=== PATIENT | male | born 1945 | race Caucasian/White ===

== ENCOUNTER 2024-07-07 15:44 | Emergency (ER) | payer MEDICARE, OTHER, SELFPAY ==
--- NOTE | 2024-07-07 20:33 | ED.GENMED ---
History of Present Illness
General
Chief Complaint: Fever
Source: patient and family
Exam Limitations: dementia
Time Seen by Provider: 07/07/24 20:15
Nursing documentation reviewed up to this point in time: agreed with
History of Present Illness
History of Present Illness:
79 y/o M
h/o dementia
afib on xarelto
here with family
fall todday and struck R face on curb, no loc
says last night pt had some pain in his R hip and some chills and fever 102
she took him to the primary office and he had Urine and ws told he probably had UTI, they were sending culture
prescribed cipro which he hasnt' started yet
the fever broke
he had a fall comin gout of the pharmacy
pt's was there and saw him fall, which isn't uncommon for him
she says he is at his baseline mental status
he has no pain
the R hip pain is resolved
he has no h/o kidney stone
no vomiting, confusion
Past History
Past History
ED Past Medical History: HTN, Hypercholesterolemia, Psychiatric and Other (dementia)
Social History
Tobacco: Non-smoker
Review of Systems
Review of Systems
Allergies reviewed?: Yes
Unable to obtain full review of systems at this time due to: dementia
All Other Systems: Not applicable
Phy Exam
Physical Exam
Physical Exam:
GENERAL: Alert , in no apparent distress, patient has a parkinsonian type stare and very slow movements but this is typical for him
HEAD: Right-sided temporal ecchymosis, no significant tenderness just lateral to the orbit on the right side
EYE: pupils equal and reactive, no nystagmus, no photophobia
NECK: Supple,full rom, nontender
ENT: o/p clr, mmm.
CARDIAC: Regular rate and rhythm . no edema
LUNGS: Clear breath sounds bilaterally, no acute respiratory distress, no wheezes/rales/rhonchi
ABDOMEN: Soft, without focal tenderness, no r/g, no cvat
NEUROLOGICAL: Alert and orientedx 4, cn intact, no facial asymmetry, 5/5 strength in UE/LE, sensation intact, , ambulates with assistance
SKIN: Warm and dry, skin intact.
MUSCULOSKELETAL: No edema, well perfused.
PSYCH: N Slow speech, dementia, baseline for the patient
Course
Orders/Labs/Results
Orders:
Orders
07/07/24 16:20
CT Head W/o Iv Contrast Urgent
Comment:
Reason For Exam: fall, head injury
Vital Signs
Temp: 36.4 C
Pulse: 92
Resp Rate: 16
Blood pressure: 152/72
Initial and Last Documented VS:
Initial Vital Signs
Temp Pulse Resp BP Pulse Ox
37.2 C 74 18 131/74 97
07/07/24 16:15 07/07/24 16:15 07/07/24 16:15 07/07/24 16:15 07/07/24 16:15
Last Documented Vital Signs
Temp Pulse Resp BP Pulse Ox
36.4 C 92 16 152/72 97
07/07/24 20:53 07/07/24 20:52 07/07/24 20:52 07/07/24 20:52 07/07/24 16:15
MDM/Problems Addressed
Differential Diagnosis Includes:
fall, head injury, uti, infected kidney stone
MDM/Problems Addressed:
79-year-old male with history of dementia who had a fall hitting his head on the curb without loss of consciousness, patient is on Xarelto though the told me it was Eliquis.
Patient had no loss of conscious
And he is at his baseline mental status
The reason he probably fell is because he is suspected to have a UTI, he had a fever and some chills and right-sided hip pain last night. The hip pain completely resolved and he is not had it all day, he has not had any Tylenol today and he has not
had a fever. Patient has waited 4 hours in the waiting room. He examines pretty well and at his baseline, his head CT was negative. From a head injury perspective I feel like he is safe to go home. I am a little concerned about the fever and the
hip pain that he could have a kidney stone however I do not have access to the urinalysis that hit they had done today. Patient was already prescribed antibiotics by the family doctor. The is pretty adamant about going home at this point and
avoiding any additional testing. She is aware that if he got worse he should be seen in the emergency department immediately. Return precautions given
*Critical Care Note
Total Time (30-74mins, 75-104mins- exclusive of procedures): Not Applicable
ED Attending Note
-
Portions of this chart may have been created with voice recognition software.� Occasional wrong word or��sound alike� substitutions may have occurred due to the inherent limitations of voice recognition software.
Discharge Plan
Departure
Patient Disposition: Home (Routine Discharge)
Date of Disposition: 07/07/24
Time of Disposition: 20:50
Patient with high blood pressure during this ER visit?: Yes
Condition: Fair
Covid-19: Not Applicable
Discharge Problem:
Fall, Mild closed head injury
Instructions: Head injury in adults
Prescriptions:
No Action
multivitamin [Daily Multiple] 1 EACH tablet
1 ea PO DAILY
metoprolol succinate 100 MG tablet extended release 24 hr
100 mg PO DAILY
clopidogrel 75 MG tablet
75 mg PO DAILY
Patient Comments:
Pt was taken off yesterday 06/26/2014.
amlodipine 5 MG tablet
5 mg PO DAILY
aspirin [Aspir-Low] 81 MG tablet,delayed release (DR/EC)
81 mg PO DAILY
simvastatin 40 MG tablet
40 mg PO QPM
levothyroxine 50 MCG tablet
50 mcg PO DAILY
hydrochlorothiazide 25 MG tablet
25 mg PO DAILY
lisinopril 40 MG tablet
40 mg PO DAILY
vardenafil [Levitra] 20 MG tablet
20 mg PO DAILY PRN (Reason: prior to sexual activity)
rivaroxaban [Xarelto] 20 MG tablet
20 mg PO QPM
Patient Comments:
take with evening meal
amoxicillin 500 MG capsule
500 mg PO PRN PRN (Reason: dental procedure)
lorazepam [Ativan] 0.5 MG tablet
0.5 mg PO DAILY
Referrals:
Navya Madrigal CRNP [Family Provider] -
Activity Restrictions/Additional Instructions:
YOUR CAT SCAN WS NEGATIVE FOR ANY HEAD TRAUMA
YOU PROBABLY HAVE A MINOR HEAD INJURY
RETURN FOR WORSENING CHANGE IN MENTAL STATUS, VOMITING, WORSE CONFUSION
BUT REGARDING HIS FEVER -- PLEASE HAVE LOW THRESHOLD TO RETURN IF WORSE, ASIYA IF HE GETS MORE HIP OR BACK PAIN - BECUASE KIDNEY STONES WITH INFECTION CAN CAUSE PAIN/FEVER AND THEN CAN MAKE A PATEITN REALLY SICK
I OFFERED TESTING FOR THIS TODAY WHICH WAS DEFERRED TO THE FAMILY DOCTOR
Interventions
Interventions:
*Risk Screen - Suicide Last Done: 07/07/24 16:15
*General Assessment Last Done: 07/07/24 16:15
*ED COVID-19 Vaccine History Last Done: 07/07/24 16:15
*Nursing Disposition Last Done: 07/07/24 21:09
Discharge Date and Time
Discharge Date/Time: 07/07/24 21:10
Print Language: SPANISH
--- NOTE | 2024-07-07 21:10 | EDRN ---
pt seen and d/c by pa prior to rn eval
== END 2024-07-07 21:10 | disposition home or self-care (01) ==
LOC: EMR 15:44
PROVIDERS: EMERGENCY PHYSICIAN Emergency Medicine; FAMILY PHYSICIAN Nurse Practitioner Family
DX: S09.90XA Unspecified injury of head, initial encounter (principal); W19.XXXA Unspecified fall, initial encounter; I10 Essential (primary) hypertension; F03.90 Unspecified dementia, unspecified severity, without behavioral disturbance, psychotic disturbance, mood disturbance, and anxiety; I48.91 Unspecified atrial fibrillation; Z79.01 Long term (current) use of anticoagulants
CPT/HCPCS: 99284; 70450